=== PATIENT | female | born 1945 | race Caucasian/White ===

== ENCOUNTER 2016-06-21 08:31 | Day surgery (SDC) ==
[2013-11-14 15:23] VITALS: BMI 23.1
[2016-06-21] MEDS ORDERED: VERSED ONE (10:30)
[2016-06-21] MEDS ORDERED: DIPRIVAN 20 ML VIAL IVP ONE (10:30)
[2016-06-21 11:49] VITALS: BP 169/94; TEMP 97.2
--- NOTE | 2016-06-22 08:53 | OP ---
PROCEDURE: COLONOSCOPY TO THE CECUM WITH SNARE POLYPECTOMY. ENDOSCOPIST: Eliot PENNINGTON M.D. INDICATION: HISTORY OF POLYPS. INSTRUMENT: FH-190. MEDICATION: PER ANESTHESIA. PROCEDURE: The patient was positioned for colonoscopy. The digital rectal exam was negative. The colonoscope was inserted through the anus and advanced under direct vision to the cecum. The cecum was identified using the ileocecal valve and the appendiceal orifice as landmarks. The scope was slowly withdrawn through an adequately prepped colon. Careful inspection was made of each colonic segment. As the scope is withdrawn in a circumferential fashion, care was taken to inspect the proximal side of the ileocecal valve, haustral folds, flexures and rectal valves. At the hepatic flexure, a 1 cm sessile polyp was removed using snare cautery. This had the appearance of a sessile serrated adenoma. At 20 cm an 8 mm semi pedunculated polyp was removed using snare cautery. Exam was difficult related to prior hysterectomy with radiation for uterine cancer. The colon was very stiff throughout. Retroflex exam could not be performed because of the stiffness of the colon and inability to safely turn within the rectal vault. No obvious polyps were seen on careful inspection on direct exam. Withdrawal time 8 minutes and 37 seconds. PLAN: 1. Suggest repeat colonoscopy in 3 years. CC: DR. KAYLA SAMANIEGO
== END 2016-06-21 11:51 | disposition home or self-care (01) ==
LOC: SURG 08:31
PROVIDERS: ATTEND Internal Medicine Gastroenterology
DX: Z86.010 Personal history of colon polyps (principal); D12.3 Benign neoplasm of transverse colon; D12.5 Benign neoplasm of sigmoid colon; K57.30 Diverticulosis of large intestine without perforation or abscess without bleeding; K63.89 Other specified diseases of intestine; Z90.722 Acquired absence of ovaries, bilateral; Z85.42 Personal history of malignant neoplasm of other parts of uterus

== ENCOUNTER 2016-08-24 08:52 | Outpatient (CLI) ==
[2013-11-14 15:23] VITALS: BMI 23.1
--- NOTE | 2016-08-24 09:59 | DEXA ---
EXAM: Bone densitometry. History: Osteoporosis. Findings: Evaluation of the lumbar spine reveals a total bone mineral density of 0.799 grams per centimeter sq uared with T-score of negative 3.2. Evaluation of the left hip reveals a total bone mineral density of 0.639 grams per centimeter square d with T-score of negative 2.9. Evaluation of the right hip reveals a total bone mineral density of 0.696 grams per centimeter squar ed with T-score of negative 2.5. Impression: Osteoporosis of the lumbar spine and bilateral hips.
--- NOTE | 2016-08-30 11:56 | MAMMO ---
EXAM: Bilateral digital screening mammogram History: Screening Comparison: Bilateral mammogram 01/11/2011 Findings: MLO and CC views of bilateral breasts demonstrate scattered fibroglandular breast parench yma. Stable benign bilateral breast calcifications. There are no dominant masses, suspicious micro calcifications and no architectural distortions Impression: Benign stable mammogram. Recommend followup routine screening mammography in 1 year. BIRADS 2
== END 2016-08-24 08:53 | disposition home or self-care (01) ==
LOC: RAD 08:52
PROVIDERS: ATTEND Family Medicine
DX: Z12.31 Encounter for screening mammogram for malignant neoplasm of breast (principal); M81.0 Age-related osteoporosis without current pathological fracture

== ENCOUNTER 2018-02-02 16:15 | Outpatient (CLI) ==
[2013-11-14 15:23] VITALS: BMI 23.1
--- NOTE | 2018-02-03 08:29 | DI ---
Exam: Single view of the chest with three views of the left ribs. Comparison: Chest x-ray performed 11/14/2013. Reason for exam: Pain. FINDINGS: No pneumothorax, pleural effusion, or focal consolidation. Parenchymal changes are seen s uggesting chronic lung disease. The cardiac silhouette is not enlarged. Atherosclerotic disease is seen within the aorta. No definite left-sided rib fractures are seen. The imaged osseous structures are diffusely demineralized which limits interpretation. Impression: 1. No acute cardiopulmonary process. 2. No displaced left-sided rib fracture is seen. The imaged osseous structures are diffusely demine ralized which limits interpretation.
--- NOTE | 2018-02-03 08:29 | DI ---
EXAM: Lumbar spine five views, including oblique views HISTORY: Pain COMPARISON: None TECHNIQUE: Five views lumbar spine were performed including oblique views FINDINGS: Bones appear demineralized. Sacroiliac joints intact. Sacral arcuate intact. Mild chron ic compression deformity L2 is similar to chest radiograph 08/22/2013. No acute fracture. Multile sandrita marginal osteophyte formation. Mild multilevel intervertebral space narrowing. Multilevel facet arthrosis. Atherosclerotic vascular calcification. IMPRESSION: 1. Chronic discogenic degenerative disease and facet arthrosis. 2. Mild chronic compression deformity L2. 3. Bones appear demineralized.
--- NOTE | 2018-02-03 08:29 | DI ---
EXAM: Radiographs, thoracic spine HISTORY: Back pain. COMPARISON: Chest radiograph 11/14/2013, 08/22/2013. TECHNIQUE: Three views. FINDINGS: Moderate compression deformity of T8 vertebral body noted with loss of vertebral body heig ht approximately 40% centrally. Vertebral body heights are otherwise normal. Alignment is normal wi thout subluxation. Visualized lungs are clear. Atherosclerotic calcifications noted along with flako nary artery stent. IMPRESSION: Moderate T8 compression deformity, which is new since 2013. Correlate with MRI as warranted.
== END 2018-02-02 16:16 | disposition home or self-care (01) ==
LOC: LAB 16:15
PROVIDERS: ATTEND Family Medicine
DX: R10.9 Unspecified abdominal pain (principal); N39.0 Urinary tract infection, site not specified; M54.6 Pain in thoracic spine; E87.1 Hypo-osmolality and hyponatremia
CPT/HCPCS: 36415; 80053; 85025

== ENCOUNTER 2018-09-20 15:54 | Outpatient (CLI) ==
[2013-11-14 15:23] VITALS: BMI 23.1
== END 2018-09-20 15:55 | disposition home or self-care (01) ==
LOC: LAB 15:54
PROVIDERS: ATTEND Family Medicine
DX: I10 Essential (primary) hypertension (principal); N39.0 Urinary tract infection, site not specified; E87.1 Hypo-osmolality and hyponatremia; E78.5 Hyperlipidemia, unspecified
CPT/HCPCS: 36415; 80053; 80061; 85025